=== PATIENT | male | born 1960 | race Caucasian/White ===

== ENCOUNTER 2022-07-02 12:33 | Emergency (ER) | payer BC ==
[~2022-07-02] VITALS: Ht 182.9 cm; Wt 111.1 kg
[~2022-07-02 12:33] MED LIST: Adipex-P37.5 MG PO; FEBU40TA; NEBI10 PO; OXYACE5T PO; Prednisone20 MG PO; RXERYTOPTH OD
== END 2022-07-02 13:32 | disposition home or self-care (01) ==
LOC: ER 12:33
DX: S01.01XA Laceration without foreign body of scalp, initial encounter (principal); I10 Essential (primary) hypertension; W01.0XXA Fall on same level from slipping, tripping and stumbling without subsequent striking against object, initial encounter; Z23 Encounter for immunization; Z79.899 Other long term (current) drug therapy; Z79.52 Long term (current) use of systemic steroids; Z87.891 Personal history of nicotine dependence
CPT/HCPCS: 90714